=== PATIENT | female | born 1975 ===

== ENCOUNTER 2019-01-29 13:13 | Emergency (ER) | payer MEDICAID, OTHER ==
[2019-01-29 13:13] VITALS: BMI 23.1
[2019-01-29 13:26] VITALS: TEMP 99.3
[2019-01-29] MEDS ORDERED: Oxycodone/Acetaminophen 5/325 mg Tab PO STA (14:07)
[2019-01-29] MEDS ORDERED: Oxycodone/Acetaminophen 5/325 mg Tab ONE (14:37)
--- NOTE | 2019-01-29 15:29 | RAD ---
Date of service: 01/29/2019 PROCEDURE: Radiographs of the Lumbar Spine. HISTORY: fall COMPARISON: None available. FINDINGS: BONES: Alignment appears satisfactory. No listhesis. No acute displaced fracture identified. DISC SPACES: Unremarkable. OTHER FINDINGS: Nonspecific calcification within the soft tissues posterior to the sacrum. IMPRESSION: No acute displaced fracture or subluxation identified.
--- NOTE | 2019-01-29 15:31 | RAD ---
Date of service: 01/29/2019 PROCEDURE: Cervical Spine Radiographs. HISTORY: Pain. COMPARISON: None available. FINDINGS: BONES: Straightening of the normal cervical lordosis may be related to muscle spasm or positioning. No acute displaced fracture identified. Superior most dens tip obscured. DISC SPACES: Unremarkable. SOFT TISSUES: Unremarkable. No prevertebral soft tissue swelling. OTHER FINDINGS: None. IMPRESSION: Straightening of the normal cervical lordosis may be related to muscle spasm or positioning. Superior most dens tip obscured. No acute displaced fracture identified.
--- NOTE | 2019-01-29 15:45 | C.PDOC ---
History Of Present Illness 43 year old female presents to ED with complaint of low back pain and neck pain after she slipped and fell. Patient denies head injury, hip pain, shoulder weakness, and numbness. Time Seen by Provider: 01/29/19 13:32 Chief Complaint (Nursing): Back Pain History Per: Patient History/Exam Limitations: no limitations Onset/Duration Of Symptoms: Hrs Current Symptoms Are (Timing): Still Present Quality Of Discomfort: "Pain" Associated Symptoms: denies: New Weakness, New Numbness Exacerbating Factor(s): Nothing Past Medical History Reviewed: Historical Data, Nursing Documentation, Vital Signs Vital Signs: Last Vital Signs Temp 99.3 F 01/29/19 13:21 Pulse 73 01/29/19 13:21 Resp 20 01/29/19 13:21 BP 131/84 01/29/19 13:21 Pulse Ox 95 01/29/19 13:21 - Medical History PMH: Asthma Denies: Chronic Kidney Disease Surgical History: No Surg Hx Family History: States: Unknown Family Hx - Social History Hx Alcohol Use: No Hx Substance Use: No - Immunization History Hx Tetanus Toxoid Vaccination: Yes Hx Influenza Vaccination: Yes Hx Pneumococcal Vaccination: No Review Of Systems Constitutional: Negative for: Fever, Chills, Weakness Cardiovascular: Negative for: Chest Pain Gastrointestinal: Negative for: Abdominal Pain Musculoskeletal: Positive for: Neck Pain, Back Pain. Negative for: Shoulder Pain, Other (hip pain) Neurological: Negative for: Weakness, Numbness, Headache, Dizziness Physical Exam - Physical Exam Appears: Non-toxic, No Acute Distress Skin: Normal Color, Warm, Dry, No Ecchymosis Head: Atraumatic, Normacephalic Neck: Paracervical Tenderness Chest: Symmetrical, No Deformity Cardiovascular: Rhythm Regular Respiratory: No Rales, No Rhonchi, No Wheezing Back: Paraspinal Tenderness (lumbar spine) Extremity: Normal ROM Extremity: Bilateral: Atraumatic, Normal Color And Temperature Pulses: Left Radial: Normal, Right Radial: Normal Neurological/Psych: Oriented x3, Normal Speech, Normal Cognition ED Course And Treatment O2 Sat by Pulse Oximetry: 95 (in RA) - Other Rad L-spine X-ray X-Ray: Interpreted by Me, Viewed By Me Interpretation: Accession No. : [id number]. Patient Name / ID : CASSANDRA SHAW / [id number]. Exam Date : 01/29/2019 14:11:39 ( Approved ). Study Comment : Sex / Age : F / 43Y. Creator : eder zhang. Dictator : Adore Hudson MD. Flight Attendant Inflight Services : Telephone Clerks Supervisor : Adore Hudson MD. Approver2 : Report Date : 01/29/2019 14:37:10. My Comment : . Date of service: 01/29/2019. PROCEDURE: Radiographs of the Lumbar Spine. HISTORY: fall. COMPARISON: None available. FINDINGS: BONES: Alignment appears satisfactory. No listhesis. No acute displaced fracture identified. DISC SPACES: Unremarkable. OTHER FINDINGS: Nonspecific calcification within the soft tissues posterior to the sacrum. IMPRESSION: No acute displaced fracture or subluxation identified. C-spine X-ray X-Ray: Interpreted by Me, Viewed By Me Interpretation: Accession No. : [id number]. Patient Name / ID : CASSANDRA SHAW / [id number]. Exam Date : 01/29/2019 14:11:26 ( Approved ). Study Comment : Sex / Age : F / 43Y. Creator : eder zhang. Dictator : Adore Hudson MD. Flight Attendant Inflight Services : Telephone Clerks Supervisor : Adore Hudson MD. Latoya rover2 : Report Date : 01/29/2019 14:37:10. My Comment : . Date of service: 01/29/2019. PROCEDURE: Cervical Spine Radiographs. HISTORY: Pain. COMPARISON: None available. FINDINGS: BONES: Straightening of the normal cervical lordosis may be related to muscle spasm or positioning. No acute displaced fracture identified. Superior most dens tip obscured. DISC SPACES: Unremarkable. SOFT TISSUES: Unremarkable. No prevertebral soft tissue swelling. OTHER FINDINGS: None. IMPRESSION: Straightening of the normal cervical lordosis may be related to muscle spasm or positioning. Superior most dens tip obscured. No acute displaced fracture identified. Progress Note: Patient given Percocet. U-preg POC ordered for pateint. L-spine and C-spine CT ordered for patient. Re-evaluation. Patient feels better. Discussed results and plan with patient who expresses understanding. All questions answered and there is agreement with the plan to discharge home with instructions. Patient stable for discharge. Return if symptoms persist or worsen. Disposition - Disposition Referrals: Alex Vega [Primary Care Provider] - Disposition: HOME/ ROUTINE Disposition Time: 16:21 Condition: STABLE Additional Instructions: Follow up with PMD within 1-2 days. Return to ED if feel worse. 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 (Myra Varner) - Scribe Statement The provider has reviewed the documentation as recorded by the Scribe (Myra Varner) All medical record entries made by the Scribe were at my direction and personally dictated by me. I have reviewed the chart and agree that the record accurately reflects my personal performance of the history, physical exam, medical decision making, and the department course for this patient. I have also personally directed, reviewed, and agree with the discharge instructions and disposition.
[2019-01-29 17:07] VITALS: BP 126/81; PULSE 75; RESP 18
[2019-01-29 22:37] VITALS: O2SAT 95
== END 2019-01-29 17:07 | disposition home or self-care (01) ==
LOC: C.ER 13:13
DX: S30.0XXA Contusion of lower back and pelvis, initial encounter (principal); S13.9XXA Sprain of joints and ligaments of unspecified parts of neck, initial encounter; W01.0XXA Fall on same level from slipping, tripping and stumbling without subsequent striking against object, initial encounter